=== PATIENT | female | born 2000 | race Caucasian/White ===

== ENCOUNTER 2025-01-31 14:59 | Outpatient (CLI) | payer BC | END 2025-01-31 15:00 | disposition home or self-care (01) | LOC: SCSMRI 14:59 | PROVIDERS: ATTEND Orthopaedic Surgery | DX: M47.812 Spondylosis without myelopathy or radiculopathy, cervical region (principal); M48.02 Spinal stenosis, cervical region; Z98.890 Other specified postprocedural states | CPT/HCPCS: 72141 ==